=== PATIENT | male | born 1980 | race Caucasian/White ===

== ENCOUNTER → 2017-11-23 | Outpatient (CLI) | payer BC | LOC: M RAD 14:58 | DX: S30.0XXD Contusion of lower back and pelvis, subsequent encounter (principal); X58.XXXA Exposure to other specified factors, initial encounter; Y92.89 Other specified places as the place of occurrence of the external cause | CPT/HCPCS: 76882 ==

== ENCOUNTER → 2017-11-23 | Outpatient (CLI) | payer BC ==
[2017-11-23 18:41] LABS: BASO % 0.5 % (0.0-1.0); EOS # 0.2 10^3/uL (0.0-0.50); EOS % 2.1 % (0.0-3.0); HEMATOCRIT 43.8 % (42.0-52.0); HEMOGLOBIN 14.8 g/dl (14.0-18.0); IMMATURE GRANULOCYTE # 0.1 10^3/uL (0-0); IMMATURE GRANULOCYTE % 0.6 % (0-0); LYMPH # 2.2 10^3/uL (1.5-4.5); LYMPH % 26.5 % (24.0-44.0); MEAN CORPUSCULAR HEMOGLOBIN 29.7 pg (27.0-33.0); MEAN CORPUSCULAR HGB CONC 33.8 g/dl (32.0-36.5); MONO # 0.8 10^3/uL (0.0-0.8); MONO % 9.6 % (0.0-5.0); NEUTROPHILS % 60.7 % (36.0-66.0); PLATELET COUNT, AUTOMATED 286 10^3/uL (150-450); RED BLOOD COUNT 4.98 10^6/uL (4.30-6.10); RED CELL DISTRIBUTION WIDTH 12.7 % (11.5-14.5); WHITE BLOOD COUNT 8.3 10^3/uL (4.0-10.0)
== END ==
LOC: M WUC 14:31
DX: S30.0XXD Contusion of lower back and pelvis, subsequent encounter (principal)
CPT/HCPCS: 85025

== ENCOUNTER → 2021-09-12 | Outpatient (CLI) | payer BC ==
[~2021-09-12] MED LIST: IBUP-1022 PO; ZOFR4TAB16 PO
[2021-09-12 17:15] LABS: BASO % 0.4 % (0.0-1.0); EOS % 0.1 % (0.0-3.0); HEMATOCRIT 45.8 % (42.0-52.0); HEMOGLOBIN 15.2 g/dl (13.5-17.5); LYMPH # 1.6 10^3/uL (1.5-5.0); LYMPH % 14.5 % (24.0-44.0); MEAN CORPUSCULAR HGB CONC 33.2 g/dl (32.0-36.5); MEAN CORPUSCULAR VOLUME 87.2 fl (80.0-96.0); MONO % 9.5 % (2.0-8.0); NEUTROPHILS # 8.1 10^3/uL (1.5-8.5); NEUTROPHILS % 74.9 % (36.0-66.0); PLATELET COUNT, AUTOMATED 212 10^3/uL (150-450); RED BLOOD COUNT 5.25 10^6/uL (4.30-6.10); WHITE BLOOD COUNT 10.8 10^3/uL (4.0-10.0)
[2021-09-12 17:26] LABS: ALBUMIN 3.7 GM/DL (3.2-5.2); ALT/SGPT 105 U/L (12-78); BILIRUBIN,TOTAL 0.7 MG/DL (0.2-1.0); BLOOD UREA NITROGEN 12 MG/DL (7-18); CARBON DIOXIDE LEVEL 32 MEQ/L (21-32); CHLORIDE LEVEL 99 MEQ/L (98-107); GLOMERULAR FILTRATION RATE > 60.0 (>60); GLUCOSE, FASTING 128 MG/DL (70-100); POTASSIUM SERUM 3.9 MEQ/L (3.5-5.1); SODIUM LEVEL 138 MEQ/L (136-145); TOTAL PROTEIN 7.6 GM/DL (6.4-8.2)
== END ==
LOC: M WUC 15:50
PROVIDERS: ATTEND Physician Assistant
DX: R51.9 Headache, unspecified (principal); R50.9 Fever, unspecified; R11.10 Vomiting, unspecified

== ENCOUNTER 2021-09-13 10:28 | Emergency (ER) | payer BC ==
[~2021-09-13] VITALS: Ht 182.9 cm; Wt 112.6 kg
--- OUTSIDE RECORDS SUMMARY | 2021-09-13 10:34 | CCD | Continuity of Care Document ---
Author Author Zaid VALENTINE PA Organization Unknown Address [address] [place] [address] Phone [phone] Care Team Providers Care Plasterer Maintenance Name Role Phone Jasmeet Co Publi AUTM [phone] Problems Description No Information Available Social History Type Date Description Comments Sex Unknown ETOH Use Denies alcohol use Tobacco Use Start: Unknown Patient has never smoked Smoking Status Reviewed: 09/12/21 Patient has never smoked Allergies and adverse reactions Description No Known Drug Allergies Medications Active Medications SIG Qnty Indications Ordering Provide r Date Theraflu Cold & Cough 10-20-20mg P acket took this am Unknown Ibuprofen 200mg Capsules took this morning Unknown Immunizations Description No Information Available Vital Signs Date Vital Result Comment 09/12/2021 3:12pm BP Systolic 141 mmHg BP Diastolic 91 mmHg Heart Rate 99 /min Respiratory Rate 20 /min O2 % BldC Oximetry 98 % Body Temperature 98.0 F Weight 255.00 lb Height 72 inches 6'0" BMI (Body Mass Index) 34.6 kg/m2 Pain Level 7 11/11/2018 9:11am BP Systolic 123 mmHg BP Diastolic 82 mmHg Heart Rate 112 /min Respiratory Rate 18 /min O2 % BldC Oximetry 97 % Body Temperature 98.0 F Weight 245.00 lb Height 72 inches 6'0" BMI (Body Mass Index) 33.2 kg/m2 Pain Level 6 Results Description No Information Available Procedures Description No Information Available Medical Devices Description No Information Available Encounters Description No Information Available Assessments Description No Information Available Plan of Treatment 09/12/2021 - B[facility] Muller* All * New Labs:* CBC With Differential, Ordered: 09/12/21 * Comprehensive Metabolic Profil, Ordered: 09/12/21 Functional Status Description No Information Available Mental Status Description No Information Available Referrals Description No Information Available
--- OUTSIDE RECORDS SUMMARY | 2021-09-13 10:34 | CCD | Continuity of Care Document ---
Author Author Zaid VALENTINE PA Organization Unknown Address [address] [place] [address] Phone [phone] Care Team Providers Care Riveting Machine Operator Tape Control Name Role Phone Jasmeet Co Publi AUTM [phone] Problems Description No Information Available Social History [...] Index) 33.2 kg/m2 Pain Level 6 Results Test Acquired Date Facility Test Result H/L Range Note CBC With Differential 09/12/2021 [facility] [address] [place] [address] [phone] White Blood Count 10.8 10 High 4.0-10.0 Red Blood Count 5.25 10 Normal 4.30-6.10 Hemoglobin 15.2 g/dL Normal 13.5-17.5 Hematocrit 45.8 % Normal 42.0-52.0 Mean Corpuscular Volume 87.2 fl Normal 80.0-96.0 Mean Corpuscular Hemoglobin 29.0 pg Normal 27.0-33.0 Mean Corpuscular HGB Conc 33.2 g/dL Normal 32.0-36.5 Red Cell Distribution Width 13.0 % Normal 11.5-14.5 Platelet Count, Automated 212 10 Normal 150-450 Neutrophils % 74.9 % High 36.0-66.0 Lymph % 14.5 % Low 24.0-44.0 Esmeralda % 9.5 % High 2.0-8.0 Eos % 0.1 % Normal 0.0-3.0 Baso % 0.4 % Normal 0.0-1.0 Immature Granulocyte % 0.6 % Normal 0-3.0 Nucleated Red Blood Cell % 0.0 % Normal 0-0 Neutrophils # 8.1 10 Normal 1.5-8.5 Lymph # 1.6 10 Normal 1.5-5.0 Esmeralda # 1.0 10 High 0.0-0.8 Eos # 0.0 10 Normal 0.0-0.5 Baso # 0.0 10 Normal 0.0-0.2 Comprehensive Metabolic Profil 09/12/[address] [address] [phone] Glucose, Fasting 128 mg/dL High 70-100 Blood Urea Nitrogen 12 mg/dL Normal 7-18 Creatinine For GFR 0.90 mg/dL Normal 0.70-1.30 Glomerular Filtration Rate > 60.0 Normal >60 1 Sodium Level 138 mEq/L Normal 136-145 Potassium Serum 3.9 mEq/L Normal 3.5-5.1 Chloride Level 99 mEq/L Normal 98-107 Carbon Dioxide Level 32 mEq/L Normal 21-32 Anion Gap 7 mEq/L Low 8-16 Calcium Level 9.0 mg/dL Normal 8.5-10.1 Ast/Sgot 38 U/L High 7-37 Alt/SGPT 105 U/L High 12-78 Alkaline Phosphatase 74 U/L Normal 45-117 Bilirubin,Total 0.7 mg/dL Normal 0.2-1.0 Total Protein 7.6 GM/DL Normal 6.4-8.2 Albumin 3.7 GM/DL Normal 3.2-5.2 Albumin/Globulin Ratio 0.9 Normal 1 Units are mL/min/1.73 m2 Chronic Kidney Disease Staging per NKF: Stage I & II GFR >=60 Normal to Mildly Decreased Stage III GFR 30-59 Moderately Decreased Stage IV GFR 15-29 Severely Decreased Stage V GFR <15 Very Little GFR Left ESRD GFR <15 on OPTICAL ENGINEER Procedures Date Code Description Status 09/12/2021 29540 Office/Outpatient Established Mo d MDM 30-39 Min Completed Medical Devices Description No Information Available Encounters Type Date Location Provider Dx Diagnosis Office Visit 09/12/2021 12:30p Main Office BOB Muller R11.10 Vomiting, unspecified R51.9 Headache, unspecified Z20.828 Contact w and exposure to ot h viral communicable diseases Assessments Date Code Description Provider 09/12/2021 R11.10 Vomiting, unspecified BOB Muller 09/12/2021 R51.9 Headache, unspecified BOB Muller 09/12/2021 Z20.828 Contact with and (ramos spected) exposure to other viral communicable diseases BOB Muller Plan of Treatment No Information Available Functional Status Description No Information Available Mental Status Description No Information Available Referrals Description No Information Available
--- OUTSIDE RECORDS SUMMARY | 2021-09-13 10:34 | CCD | Continuity of Care Document ---
Author Author Zaid VALENTINE PA Organization Unknown Address [address] [place] [address] Phone [phone] Care Team Providers Care Risk Consultant Name Role Phone Jasmeet Co Publi AUTM [phone] Problems Description No Information Available Social History [...] H/L Range Note CBC With Differential 09/12/2021 [facility] [address] [place] [address] [phone] White Blood Count 10.8 10 High 4.0-10.0 [...] 36.0-66.0 Lymph % 14.5 % Low 24.0-44.0 [place] % 9.5 % High 2.0-8.0 Eos % 0.1 % Normal 0.0-3.0 Baso % 0.4 % Normal 0.0-1.0 Immature Granulocyte % 0.6 % Normal 0-3.0 Nucleated Red Blood Cell % 0.0 % Normal 0-0 Neutrophils # 8.1 10 Normal 1.5-8.5 Lymph # 1.6 10 Normal 1.5-5.0 [place] # 1.0 10 High 0.0-0.8 Eos # 0.0 10 Normal 0.0-0.5 Baso # 0.0 10 Normal 0.0-0.2 Comprehensive Metabolic Profil 09/12/[address] [address] [phone] Glucose, Fasting 128 mg/dL High 70-100 Blood [...] Little GFR Left ESRD GFR <15 on MASTER YACHT Procedures Date Code Description Status 09/12/2021 24601 Office/Outpatient Established Mo d MDM 30-39 Min [...]
--- OUTSIDE RECORDS SUMMARY | 2021-09-13 10:34 | CCD ---
Author Author [facility] Organization [facility] Address Unknown Phone Unavailable Care Team Providers Care Certified Dietary Manager Name Role Phone Elan-Centner, Yuliya Unavailable Unavailable Elan-Centner, Yuliya Unavailable Unavailable Elan-Centner, Yuliya Unavailable Unavailable Elan-Centner, Yuliya Unavailable Unavailable Elan-Centner, Yuliya Unavailable Unavailable Elan-Centner, Yuliya Unavailable Unavailable Elan-Centner, Yuliya Unavailable Unavailable Elan-Centner, Yuliya Unavailable Unavailable Elan-Centner, Yuliya Unavailable Unavailable Elan-Centner, Yuliya Unavailable Unavailable Elan-Centner, Yuliya Unavailable Unavailable RING, K ARIANA PA Unavailable Unavailable RING, K ARIANA PA Unavailable Unavailable RING, K ARIANA PA Unavailable Unavailable RING, K ARIANA PA Unavailable Unavailable RING, K ARIANA PA Unavailable Unavailable RING, K ARIANA PA Unavailable Unavailable RING, K ARIANA PA Unavailable Unavailable RING, K ARIANA PA Unavailable Unavailable RING, K ARIANA PA Unavailable Unavailable RING, K ARIANA PA Unavailable Unavailable RING, K ARIANA PA Unavailable Unavailable RING, K ARIANA PA Unavailable Unavailable RING, K ARIANA PA Unavailable Unavailable RING, K ARIANA PA Unavailable Unavailable RING, K ARIANA PA Unavailable Unavailable RING, K ARIANA PA Unavailable Unavailable RING, K ARIANA PA Unavailable Unavailable RING, K ARIANA PA Unavailable Unavailable RING, K ARIANA PA Unavailable Unavailable RING, K ARIANA PA Unavailable Unavailable RING, K ARIANA PA Unavailable Unavailable Lam, Elberton Sarika Unavailable Unavailable Lam, Elberton Sarika Unavailable Unavailable Lam, Elberton Sarika Unavailable Unavailable Lam, [place]berton Sarika Unavailable Unavailable Lam, [place]ber[place] Sarika Unavailable Unavailable Lam, Elberton Sarika Unavailable Unavailable Lam, [place]ber[place] Sarika Unavailable Unavailable Lam, Elberton Sarika Unavailable Unavailable Lam, Elberton Sarika Unavailable Unavailable Lam, Elberton Sarika Unavailable Unavailable Lam, Elberton Sarika Unavailable Unavailable Lam, Elberton Sarika Unavailable Unavailable Lam, Elberton Sarika Unavailable Unavailable Re-disclosure Warning The records that you are about to access may contain information from federally-assisted alcohol or drug abuse programs. If such information is present, then the following federally mandated warning applies: This information has been disclosed to you from records protected by federal confidentiality rules (42 CFR part 2). The federal rules prohibit you from making any further disclosure of this information unless further disclosure is expressly permitted by the written consent of the person to whom it pertains or as otherwise permitted by 42 CFR part 2. A general authorization for the release of medical or other information is NOT sufficient for this purpose. The Federal rules restrict any use of the information to criminally investigate or prosecute any alcohol or drug abuse patient.The records that you are about to access may contain highly sensitive health information, the redisclosure of which is protected by Article 27-F of the [facility] Public Health law. If you continue you may have access to information: Regarding HIV / AIDS; Provided by facilities licensed or operated by the [facility] Office of Mental Health; or Provided by the [facility] Office for People With Developmental Disabilities. If such information is present, then the following [facility] mandated warning applies: This information has been disclosed to you from confidential records which are protected by state law. State law prohibits you from making any further disclosure of this information without the specific written consent of the person to whom it pertains, or as otherwise permitted by law. Any unauthorized further disclosure in violation of state law may result in a fine or longterm sentence or both. A general authorization for the release of medical or other information is NOT sufficient authorization for further disc losure. Allergies and Adverse Reactions Type Description Substance Reaction Status Data Source(s ) Allergy to substance Allergy to substance Allergy to substance BOLT ([facility]) Allergy to substance Allergy to substance Allergy to substance [facility] ([facility]) Family History Family Member Name Family Member Gender Family Member Status Date o f Status Description Data Source(s) Unknown Unknown Problem MEDENT ([facility], [facility]) mother Encounters Encounter Providers Location Date Indications Data Source(s ) Outpatient Attender: ARIANA Be [facility] 09/12/2021 11:30:00 AM EST [facility] ([facility]) ROLDAN MezaP-C: [address] [place] [address], Ph. Attender: Sarika Lam [facility] 02/02/2021 12:00:00 AM EDT BOLT ([facility]) Yuliya Ansari RPA-C: [address] [place] [address], Ph. Attender: Yuliya Blackmon [facility] 01/05/2021 12:00:00 AM EST JOSE RAMON ([facility]) Yuliya Ansari RPA-C: [address] [place] [address], Ph. Attender: Yuliya Blackmon [facility] 01/05/2021 12:00:00 AM EST JOSE RAMON ([facility]) Immunizations Vaccine Date Status Description Data Source(s) COVID-19, mRNA, LNP-S, PF, 100 mcg/0.5 mL dose 02/02/2021 02 :49:53 PM EDT completed 10.5 mL JOSE RAMON ([facility]) COVID-19 VACCINE Moderna 02/02/2021 12:00:00 AM EDT completed IDSIIS Vaccine Series Complete: YESThis Data wa s Submitted to [facility] Via [employer]. COVID-19, mRNA, LNP-S, PF, 100 mcg/0.5 mL dose 01/06/2021 11 :51:27 PM EST completed 10.5 mL JOSE RAMON ([facility]) COVID-19, mRNA, LNP-S, PF, 100 mcg/0.5 mL dose 01/06/2021 11 :51:27 PM EST completed .5 mL JOSE RAMON ([facility]) COVID-19 VACCINE Moderna 01/06/2021 12:00:00 AM EST completed NYSIIS Vaccine Series Complete: NOThis Data was Submitted to [facility] Via [employer]. Medications No Information Insurance Providers Payer name Policy type / Coverage type Policy ID Covered green party ID Covered green party's relationship to hernandez Policy Hernandez Plan Information BS Keymar Trad/MX Commercial [id number] Self BS Keymar Trad/[place] Commercial [id number] Self [facility] H [id number] Self [id number] [place] PPO 302/307 [id number] SP [id number] [employer] BCBS B [id number] BCBS/[employer]cell[employer] Commercial [id number] Self [id number] [facility] [id number] SP [id number] BCBS/[employer] Commercial [id number] Self [id number] BCBS/[employer] Commercial [id number] Self [facility] [id number] SP [id number] [facility]-O/P [id number] 18 [id number] BCBS [place] PPO 302/307 [id number] SP [id number] [facility] [id number] 18 [id number] BCBS/[employer] Commercial [id number] Self [id number] BCBS/auctionPAL [id number] Self [id number] Problems, Conditions, and Diagnoses No Information Surgeries/Procedures Procedure Description Date Indications Data Source(s) OFFICE OUTPATIENT VISIT 25 MINUTES 09/12/2021 12:00:00 AM EST MEDENT ([facility], [facility]) Results ID Date Data Source [id number] 09/12/2021 03:52:00 PM EST MEDENT ([facility], [facility]) Name Value Range Interpretation Code Description Data Abbey rce(s) Supporting Document(s) Glucose, Fasting 128 mg/dL 70-100 MEDENT ([facility]) Glomerular Filtration Rate Laboratory test result [facility] ([facility]) <content>Units are mL/min/1.73 m2</content>
<content></content>
<content>Chronic Kidney Disease Staging per NKF:</content>
<content></content>
<content>Stage I & II GFR >=60 Normal to Mildly Decreased</content>
<content>Stage III GFR 30-59 Moderately Decreased</content>
<content>Stage IV GFR 15-29 Severely Decreased</content>
<content>Stage V GFR <15 Very Little GFR Left</content>
<content>ESRD GFR <15 on POULTRY HATCHERY MAN</content>
<content></content> Creatinine For GFR 0.90 mg/dL 0.70-1.30 MEDENT ([facility], [facility]) Blood Urea Nitrogen 12 mg/dL 7-18 MEDENT ([facility], [facility]) Chloride Level 99 meq/L 98-107 MEDENT ([facility]) Sodium Level 138 meq/L 136-145 MED[facility] ([facility], [facility]) Potassium Serum 3.9 meq/L 3.5-5.1 MEDENT ([facility], [facility]) Anion Gap 7 meq/L 8-16 MEDENT ([facility], [facility]) Carbon Dioxide Level 32 meq/L 21-32 [facility] ( [facility]) Ast/Sgot 38 U/L 7-37 MED[facility] ([facility], [facility]) Calcium Level 9.0 mg/dL 8.5-10.1 MEDENT ([facility], [facility]) Alt/SGPT 105 U/L 12-78 MED[facility] ([facility], [facility]) Total Protein 7.6 GM/DL 6.4-8.2 MED[facility] ([facility], [facility]) Alkaline Phosphatase 74 U/L 45-117 [facility] ( [facility]) Bilirubin,Total 0.7 mg/dL 0.2-1.0 MED[facility] ([facility], [facility]) Albumin/Globulin Ratio 0.9 MED[facility] ([facility], [facility]) Albumin 3.7 GM/DL 3.2-5.2 MEDENT ([facility], [facility]) ID Date Data Source [id number] 09/12/2021 03:52:00 PM EST MEDENT ([facility], [facility]) Name Value Range Interpretation Code Description Data Abbey rce(s) Supporting Document(s) White Blood Count 10.8 10 4.0-10.0 MEDENT ([facility], [facility]) Red Blood Count 5.25 10 4.30-6.10 MED[facility] ([facility], [facility]) Hemoglobin 15.2 g/dL 13.5-17.5 MED[facility] ([facility], [facility]) Mean Corpuscular Volume 87.2 fl 80.0-96.0 M EDENT ([facility], [facility]) Hematocrit 45.8 % 42.0-52.0 [facility]) Red Cell Distribution Width 13.0 % 11.5-14.5 MED[facility] ([facility], [facility]) Mean Corpuscular Hemoglobin 29.0 pg 27.0-33.0 MED[facility] ([facility], [facility]) Mean Corpuscular HGB Conc 33.2 g/dL 32.0-36.5 MED[facility] ([facility], [facility]) Platelet Count, Automated 212 10 150-450 MED[facility] ([facility], [facility]) [place] % 9.5 % 2.0-8.0 MED[facility] ([facility], [facility]) Lymph % 14.5 % 24.0-44.0 MEDENT ([facility], [facility]) Neutrophils % 74.9 % 36.0-66.0 MEDENT ([facility], [facility]) Immature Granulocyte % 0.6 % 0-3.0 MED[facility] ([facility], [facility]) Eos % 0.1 % 0.0-3.0 MED[facility] ([facility], [facility]) Baso % 0.4 % 0.0-1.0 MEDENT ([facility], [facility]) Neutrophils # 8.1 10 1.5-8.5 MEDENT ([facility], [facility]) Lymph # 1.6 10 1.5-5.0 MEDENT ([facility], [facility]) Nucleated Red Blood Cell % 0.0 % 0-0 MED ENT ([facility], [facility]) [place] # 1.0 10 0.0-0.8 MEDENT ([facility], [facility]) Baso # 0.0 10 0.0-0.2 MED[facility] ([facility], [facility]) Eos # 0.0 10 0.0-0.5 MEDENT ([facility], [facility]) ID Date Data Source [id number] 12/09/2020 12:00:00 AM EST [facility] Name Value Range Interpretation Code Description Data Abbey rce(s) Supporting Document(s) SARS-CoV2 Rapid Antigen Negative [facility] This lab was ordered by [facility] and reported by [facility]. ID Date Data Source [id number] 08/26/2020 12:00:00 AM EDT [facility] Name Value Range Interpretation Code Description Data Abbey rce(s) Supporting Document(s) SARS coronavirus 2 Ag [facility] This lab was ordered by [facility] and reported by [facility]. Procedure Social History Code Duration Value Status Description Data Source(s ) Smoking 09/12/2021 12:00:00 AM EST Patient has never smoked co mpleted Patient has never smoked MED[facility] ([facility]) Vital Signs ID Date Data Source UNK Name Value Range Interpretation Code Description Data Source(s) Oxygen saturation in Arterial blood by Pulse oximetry 98 % 98 % [facility] ([facility]) Body temperature 98.0 [degF] 98.0 [degF] [facility] ([facility]) Body weight 255.00 [lb_av] 255.00 [lb_av] MEDEN T ([facility]) Body height 72 [in_i] 72 [in_i] [facility] ([facility]) 6'0" Body mass index (BMI) [Ratio] 34.6 kg/m2 34.6 k g/m2 [facility] ([facility]) Systolic blood pressure 141 mm[Hg] 141 mm[Hg] M EDENT ([facility]) Diastolic blood pressure 91 mm[Hg] 91 mm[Hg] [facility] ([facility]) Heart rate 99 /min 99 /min [facility] ([facility]) Respiratory rate 20 /min 20 /min [facility] ( [facility])
[2021-09-13] MEDS ORDERED: ZOFR4TAB16 PO (10:37)
[2021-09-13] MEDS ORDERED: IBUP-1022 PO (10:37)
[2021-09-13] MEDS ORDERED: NS 1,000 ML IV ONE (13:50)
[2021-09-13] MEDS ORDERED: KETOROLAC 30 MG/ML 1ML VIAL IV ONE (13:50)
[2021-09-13] MEDS ORDERED: METOCLOPRAMIDE INJ 10MG/2ML VIAL (J2765 PER 1) IV ONE (13:50)
[2021-09-13 14:11] LABS: BASO % 0.2 % (0.0-1.0); EOS % 0.1 % (0.0-3.0); HEMATOCRIT 45.4 % (42.0-52.0); HEMOGLOBIN 15.1 g/dl (13.5-17.5); LYMPH # 2.1 10^3/uL (1.5-5.0); LYMPH % 19.2 % (24.0-44.0); MEAN CORPUSCULAR HGB CONC 33.3 g/dl (32.0-36.5); MEAN CORPUSCULAR VOLUME 87.1 fl (80.0-96.0); MONO % 8.7 % (2.0-8.0); NEUTROPHILS # 7.8 10^3/uL (1.5-8.5); NEUTROPHILS % 71.4 % (36.0-66.0); PLATELET COUNT, AUTOMATED 238 10^3/uL (150-450); RED BLOOD COUNT 5.21 10^6/uL (4.30-6.10)
--- NOTE | 2021-09-13 14:49 | REP ---
INDICATION: headache, vomiting. COMPARISON: 05/02/2009 TECHNIQUE: Noncontrast soft tissue and bone windows with coronal reconstructions provided. FINDINGS: Lateral ventricles midline, symmetric and without dilatation or displacement. Third and 4th ventricles unremarkable. Basal ganglia symmetric and normal. The laguna-white junction differentiation well-maintained. Cortical stripe is preserved. There is no atrophy, intra or extra-axial hemorrhage, mass or mass effect identified. Brainstem and cerebellum intact. Posterior fossa without mass or hemorrhage. Bone windows show mastoids, sinuses, skull base and calvarium normal. 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 IMPRESSION: : 1. No intracranial hemorrhage, acute infarct, mass or mass effect. 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 2. Skull base, calvarium, mastoids and sinuses clear. <Electronically signed by Jack Miller > 09/13/21 [id number]
[2021-09-13 15:06] LABS: ALBUMIN 3.6 GM/DL (3.2-5.2); ALT/SGPT 78 U/L (12-78); BILIRUBIN,DIRECT 0.3 MG/DL (0.0-0.2); BILIRUBIN,TOTAL 0.9 MG/DL (0.2-1.0); BLOOD UREA NITROGEN 13 MG/DL (7-18); CALCIUM LEVEL 9.2 MG/DL (8.5-10.1); CARBON DIOXIDE LEVEL 27 MEQ/L (21-32); CHLORIDE LEVEL 100 MEQ/L (98-107); CREATININE FOR GFR 0.84 MG/DL (0.70-1.30); FREE T4 1.09 NG/DL (0.76-1.46); GLOMERULAR FILTRATION RATE > 60.0 (>60); GLUCOSE, FASTING 124 MG/DL (70-100); LIPASE 109 U/L (73-393); POTASSIUM SERUM 3.9 MEQ/L (3.5-5.1); SODIUM LEVEL 135 MEQ/L (136-145); THYROID STIMULATING HORMONE 0.407 uIU/ML (0.358-3.740); TOTAL PROTEIN 7.8 GM/DL (6.4-8.2)
--- OUTSIDE RECORDS SUMMARY | 2021-09-13 16:39 | CCD ---
Author Author [facility] Organization [facility] Address Unknown Phone Unavailable Care Team Providers Care Balance Weigher Name Role Phone Elan-Centner, Yuliya Unavailable Unavailable [...] RING, K ARIANA PA Unavailable Unavailable Lam, Mayflower Sarika Unavailable Unavailable Lam, Mayflower Sarika Unavailable Unavailable Lam, Mayflower Sarika Unavailable Unavailable Lam, Mayflower Sarika Unavailable Unavailable Lam, Mayflower Sarika Unavailable Unavailable Lam, Mayflower Sarika Unavailable Unavailable Lam, Mayflower Sarika Unavailable Unavailable Lam, Mayflower Sarika Unavailable Unavailable Lam, Mayflower Sarika Unavailable Unavailable Lam, Mayflower Sarika Unavailable Unavailable Lam, Mayflower Sarika Unavailable Unavailable Lam, Mayflower Sarika Unavailable Unavailable Lam, Mayflower Sarika Unavailable Unavailable Re-disclosure Warning The records [...] is protected by Article 27-F of the [facility] Public Health law. If you continue you may have access to information: Regarding HIV / AIDS; Provided by facilities licensed or operated by the [facility] Office of Mental Health; or Provided by the [facility] Office for People With Developmental Disabilities. If such information is present, then the following [facility] mandated warning applies: This information has been [...] law may result in a fine or custodial sentence or both. A general authorization for the release of medical or other information is NOT sufficient authorization for further disc losure. Allergies and Adverse Reactions Type Description Substance Reaction Status Data Source(s ) Allergy to substance Allergy to substance Allergy to substance [facility] ([facility]) Allergy to substance Allergy to substance Allergy to substance [facility] ([facility]) Family History Family Member Name Family Member Gender Family Member Status Date o f Status Description Data Source(s) Unknown Unknown Problem MED[facility] ([facility], [facility]) mother Encounters Encounter Providers Location Date Indications Data Source(s ) Outpatient Attender: ARIANA Be [facility] 09/12/2021 11:30:00 AM EST [facility] ([facility], [facility]) ROLDAN MezaP-C: [address] [place] [address], Ph. Attender: Sarika Lam [facility] Medical 02/02/2021 12:00:00 AM EDT [facility] ([facility]) Yuliya Ansari RPA-C: [address] [place] [address], Ph. Attender: Yuliya Blackmon [facility] Medical 01/05/2021 12:00:00 AM EST JOSE RAMON ([facility]) Yuliya Ansari RPA-C: [address] [place] [address], Ph. Attender: Yuliya Blackmon [facility] Medical 01/05/2021 12:00:00 AM EST JOSE RAMON ([facility]) Immunizations Vaccine Date Status Description Data Source(s) COVID-19, mRNA, LNP-S, PF, 100 mcg/0.5 mL dose 02/02/2021 02 :49:53 PM EDT completed 10.5 mL JOSE RAMON ([facility]) COVID-19 VACCINE Moderna 02/02/2021 12:00:00 AM EDT completed DCSIIS Vaccine Series Complete: YESThis Data wa s Submitted to [facility] Via [facility]. COVID-19, mRNA, LNP-S, PF, 100 mcg/0.5 mL dose 01/06/2021 11 :51:27 PM EST completed 10.5 mL JOSE RAMON ([facility]) COVID-19, mRNA, LNP-S, PF, 100 mcg/0.5 mL dose 01/06/2021 11 :51:27 PM EST completed .5 mL JOSE RAMON ([facility]) COVID-19 VACCINE Moderna 01/06/2021 12:00:00 AM EST completed NYSIIS Vaccine Series Complete: NOThis Data was Submitted to [facility] Via [facility]. Medications No Information Insurance Providers Payer name Policy type / Coverage type Policy ID Covered libertarian ID Covered libertarian's relationship to hernandez Policy Hernandez Plan Information [place] Commercial [id number] Self [place] Commercial [id number] Self [facility] H [id number] Self [id number] [employer] [place] PPO 302/307 [id number] SP [id number] [employer] B [id number] S [id number] BC[employer] Commercial [id number] Self [id number] [facility] [id number] SP [id number] BC[employer] Commercial [id number] Self [id number] BC[employer] Commercial [id number] [facility] [id number] SP [id number] [facility] HEALTH INSURANCE COMPANY-O/P [id number] 18 [id number] [place]BS [place] PPO 302/307 [id number] SP [id number] [facility] HEALTH INSURANCE COMPANY-[facility] [id number] 18 [id number] BCBS/[employer] Commercial [id number] Self [id number] [employer] [id number] Self [id number] Problems, Conditions, and Diagnoses No Information Surgeries/Procedures Procedure Description Date Indications Data Source(s) OFFICE OUTPATIENT VISIT 25 MINUTES 09/12/2021 12:00:00 AM EST MEDENT ([facility], [facility]) Results ID Date Data Source [id number] 09/12/2021 03:52:00 PM EST MED[facility] ([facility], [facility]) Name Value Range Interpretation Code Description Data Abbey rce(s) Supporting Document(s) Glucose, Fasting 128 mg/dL 70-100 MED[facility] ([facility]) Glomerular Filtration Rate Laboratory test result [facility] ([facility]) <content>Units are mL/min/1.73 m2</content>
<content></content>
<content>Chronic Kidney Disease Staging per NKF:</content>
<content></content>
<content>Stage I & II GFR >=60 Normal to Mildly Decreased</content>
<content>Stage III GFR 30-59 Moderately Decreased</content>
<content>Stage IV GFR 15-29 Severely Decreased</content>
<content>Stage V GFR <15 Very Little GFR Left</content>
<content>ESRD GFR <15 on SPINNER OPEN END</content>
<content></content> Creatinine For GFR 0.90 mg/dL 0.70-1.30 MEDENT ([facility], [facility]) Blood Urea Nitrogen 12 mg/dL 7-18 MEDENT ([facility], [facility]) Chloride Level 99 meq/L 98-107 MED[facility] ([facility]) Sodium Level 138 meq/L 136-145 [facility] ([facility], [facility]) Potassium Serum 3.9 meq/L 3.5-5.1 MED[facility] ([facility], [facility]) Anion Gap 7 meq/L 8-16 MED[facility] ([facility], [facility]) Carbon Dioxide Level 32 meq/L 21-32 [facility] ( [facility]) Ast/Sgot 38 U/L 7-37 MEDENT ([facility], [facility]) Calcium Level 9.0 mg/dL 8.5-10.1 MEDENT ([facility], [facility]) Alt/SGPT 105 U/L 12-78 MEDENT ([facility], [facility]) Total Protein 7.6 GM/DL 6.4-8.2 MED[facility] ([facility], [facility]) Alkaline Phosphatase 74 U/L 45-117 [facility] ( [facility]) Bilirubin,Total 0.7 mg/dL 0.2-1.0 MED[facility] ([facility], [facility]) Albumin/Globulin Ratio 0.9 MED[facility] ([facility], [facility]) Albumin 3.7 GM/DL 3.2-5.2 MEDENT ([facility], [facility]) ID Date Data Source [id number] 09/12/2021 03:52:00 PM EST MEDENT ([facility], [facility]) Name Value Range Interpretation Code Description Data Abbey rce(s) Supporting Document(s) White Blood Count 10.8 10 4.0-10.0 MEDENT ([facility], [facility]) Red Blood Count 5.25 10 4.30-6.10 MED[facility] ([facility], [facility]) Hemoglobin 15.2 g/dL 13.5-17.5 MEDENT ([facility], [facility]) Mean Corpuscular Volume 87.2 fl 80.0-96.0 M EDENT ([place] [facility], [facility]) Hematocrit 45.8 % 42.0-52.0 [facility] ([facility], [facility]) Red Cell Distribution Width 13.0 % 11.5-14.5 MED[facility] ([facility], [facility]) Mean Corpuscular Hemoglobin 29.0 pg 27.0-33.0 MED[facility] ([facility], [facility]) Mean Corpuscular HGB Conc 33.2 g/dL 32.0-36.5 [facility] ([facility], [facility]) Platelet Count, Automated 212 10 150-450 MED[facility] ([facility], [facility]) [place] % 9.5 % 2.0-8.0 MEDENT ([facility], [facility]) Lymph % 14.5 % 24.0-44.0 MED[facility] ([facility], [facility]) Neutrophils % 74.9 % 36.0-66.0 MEDENT ([facility], [facility]) Immature Granulocyte % 0.6 % 0-3.0 MED[facility] ([facility], [facility]) Eos % 0.1 % 0.0-3.0 MED[facility] ([facility], [facility]) Baso % 0.4 % 0.0-1.0 MED[facility] ([facility], [facility]) Neutrophils # 8.1 10 1.5-8.5 MED[facility] ([facility], [facility]) Lymph # 1.6 10 1.5-5.0 MED[facility] ([facility], [facility]) Nucleated Red Blood Cell % 0.0 % 0-0 MED ENT ([facility], [facility]) [place] # 1.0 10 0.0-0.8 MEDENT ([facility], [facility]) Baso # 0.0 10 0.0-0.2 MED[facility] ([facility], [facility]) Eos # 0.0 10 0.0-0.5 MED[facility] ([facility], [facility]) ID Date Data Source [id number] 12/09/2020 12:00:00 AM EST [facility] Name Value Range Interpretation Code Description Data Abbey rce(s) Supporting Document(s) SARS-CoV2 Rapid Antigen Negative [facility] This lab was ordered by [facility] and reported by [facility]. ID Date Data Source [id number] 08/26/2020 12:00:00 AM EDT [facility] Name Value Range Interpretation Code Description Data Abbey rce(s) Supporting Document(s) SARS coronavirus 2 Ag [facility] This lab was ordered by [facility] and reported by [facility]. Procedure Social History Code Duration Value Status Description Data Source(s ) Smoking 09/12/2021 12:00:00 AM EST Patient has never smoked co mpleted Patient has never smoked [facility] ([facility]) Vital Signs ID Date Data Source UNK Name Value Range Interpretation Code Description Data Source(s) Oxygen saturation in Arterial blood by Pulse oximetry 98 % 98 % [facility] ([facility]) Body temperature 98.0 [degF] 98.0 [degF] [facility] ([facility]) Body weight 255.00 [lb_av] 255.00 [lb_av] MEDEN T ([facility]) Body height 72 [in_i] 72 [in_i] [facility] ([facility]) 6'0" Body mass index (BMI) [Ratio] 34.6 kg/m2 34.6 k g/m2 [facility] ([facility]) Systolic blood pressure 141 mm[Hg] 141 mm[Hg] M EDENT ([facility]) Diastolic blood pressure 91 mm[Hg] 91 mm[Hg] [facility] ([facility]) Heart rate 99 /min 99 /min [facility] ([facility]) Respiratory rate 20 /min 20 /min [facility] ( [facility])
[2021-09-13 16:46] VITALS: BP 138/58
== END 2021-09-13 17:02 | disposition home or self-care (01) ==
LOC: M ED 10:28
DX: R51.9 Headache, unspecified (principal); R11.10 Vomiting, unspecified; R52 Pain, unspecified
CPT/HCPCS: 70450; 80048; 80076; 83690; 84439; 84443; 85025; 87798; 93041; 94760; 96361; 96374; 96375; 99284; J1885; J2765

== ENCOUNTER 2025-09-17 09:01 | Day surgery (SDC) | payer BC ==
[~2025-09-17] VITALS: Ht 182.9 cm; Wt 109.2 kg
[~2025-09-17 09:01] MED LIST changes: -IBUP-1022 PO; +IBUP600T42 PO; +LIDOCAINE 2% 100 MG/5 ML SDV (FOR ANES.) As Ordered ONE
[2025-09-17] MEDS ORDERED: GLYCOPYRROLATE INJ 0.2 MG/ML 2 ML VIAL As Ordered ONE (09:08)
[2025-09-17 11:24] VITALS: TEMP 97.3
[2025-09-17 11:34] VITALS: BP 110/72; O2SAT 94
== END 2025-09-17 11:50 | disposition home or self-care (01) ==
LOC: M OPP 09:01
PROVIDERS: ATTEND Surgery
DX: Z12.11 Encounter for screening for malignant neoplasm of colon (principal)
CPT/HCPCS: 45378; J1596